=== PATIENT | female | born 1955 | race Caucasian/White ===

== ENCOUNTER → 2016-05-27 | Outpatient (CLI) | payer OTHER ==
--- NOTE | 2016-05-27 15:23 | DX ---
Bilateral Ankles, 3 views of each History: Chronic pain, history of plantar fasciitis Findings: There is subtle cystic change in both medial talar domes. There is asymmetric right ankle j oint valgus of approximately 8 degrees. The talar domes have normal articular contours. The ankle nick nts are symmetric and normal in width. There is no evidence for ankle joint effusion. Overall mineral ization is normal. There is no spurring, erosive change or sclerosis. Impression: 1. Asymmetric right ankle mild joint valgus. 2. Mild talar dome degenerative versus remote posttraumatic change.
--- NOTE | 2016-05-28 00:59 | DX ---
Bilateral Hands, Bilateral Wrists, and Bilateral Feet CLINICAL HISTORY: 60-year-old female with bilateral foot pain for three years, with tenderness over the cuboid tarsal bone, and a history of plantar fasciitis. She also has bilateral thumb pain, with i nvolvement of the left 5th digit for three years, and bilateral wrist pain for three years. 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 COMPARISON STUDY: Bilateral ankles performed today. FINDINGS BILATERAL HANDS (Three Views Each, at 11:40 a.m.): LEFT HAND: Bone mineralization is preserved. The radiocarpal and intercarpal alignments are maintai rosa. There is some mild degenerative narrowing of the thumb carpometacarpal joint, and of the thumb metacarpophalangeal and interphalangeal joints, as well as involving the index finger PIP and DIP nick nts, middle finger DIP joint, and 5th finger PIP joint where there is some soft tissue swelling and s ome osseous remodeling at the PIP joint, with slight subluxation. Has the patient had prior trauma t o the distal portion of the 5th finger proximal phalanx? RIGHT HAND: Bone mineralization is preserved. There is some mild degenerative narrowing at the xochitl cular-greater multangular articulation and at the thumb carpometacarpal joint and the metacarpophalan geal joint. There are degenerative features also at the level of the 2nd, 3rd, and 4th digit PIP and DIP joints. There is a tiny benign bone island associated with the ring finger middle phalanx. IMPRESSION: Degenerative osteoarthritic features, as-detailed. BILATERAL WRISTS (Three Views Each, at 11:36 a.m.): There is mild degenerative change associated wit h each of the thumb carpometacarpal joints where there is some slight subluxation. There is also deg enerative narrowing of the right navicular-greater multangular articulation. There is a small margin al erosion involving the peripheral medial distal portion of the left triquetrum. The radiocarpal an d intercarpal ligaments are otherwise unremarkable. There is no acute fracture, periostitis, or lyti c or blastic lesion. The pronator fat pad is not displaced on either side. There is no soft tissue calcification. IMPRESSION: Degenerative osteoarthritic features, with mild subluxation at the right and left thumb carpometacarpal joints, the right navicular-greater multangular articulation, and along the distal me dial portion of the left triquetrum. BILATERAL FEET (Three Views Each, at 11:43 a.m.): There is no juxta-articular osteopenia. There is no acute fracture or dislocation. There is no osteolytic or blastic lesion, or marginal erosion. Th e tarsometatarsal alignments are anatomic. There is a degenerative spur formation at the distal medi al portion of the right medial cuneiform. There is some mild degenerative change associated with eac h great toe metatarsophalangeal joint. There are tiny plantar calcaneal enthesophytes, left slightly greater than right. Boehler's angle is normal on each side. The subtalar joints are normal. There is no ankle joint effusion. IMPRESSION: 1. Mild degenerative change at the right great toe tarsometatarsal joint, and very mild bilateral gr eat toe MTP joint osteoarthroses. 2. Small plantar calcaneal enthesophytes, left greater than right.
== END ==
LOC: FIMAGING 11:15
PROVIDERS: ATTEND General Practice
DX: M19.041 Primary osteoarthritis, right hand (principal); M19.042 Primary osteoarthritis, left hand; M19.031 Primary osteoarthritis, right wrist; M19.032 Primary osteoarthritis, left wrist; M19.072 Primary osteoarthritis, left ankle and foot; M19.071 Primary osteoarthritis, right ankle and foot; M77.32 Calcaneal spur, left foot

== ENCOUNTER → 2017-01-06 | Outpatient (CLI) | payer OTHER | LOC: FIMAGING 12:08 | PROVIDERS: ATTEND Internal Medicine | DX: N63 Unspecified lump in breast (principal) | CPT/HCPCS: G0204 ==

== ENCOUNTER → 2017-02-17 | Outpatient (CLI) | payer OTHER | LOC: FIMAGING 13:56 | PROVIDERS: ATTEND Internal Medicine | DX: Z13.820 Encounter for screening for osteoporosis (principal); M85.832 Other specified disorders of bone density and structure, left forearm ==

== ENCOUNTER → 2017-12-27 | Outpatient (CLI) | payer OTHER | LOC: BMCIMAGING 10:09 | PROVIDERS: ATTEND Internal Medicine Rheumatology | DX: M19.041 Primary osteoarthritis, right hand (principal) ==

== ENCOUNTER → 2018-01-11 | Outpatient (CLI) | payer OTHER | LOC: FIMAGING 10:59 | PROVIDERS: ATTEND Internal Medicine Rheumatology | DX: Z13.820 Encounter for screening for osteoporosis (principal); M85.89 Other specified disorders of bone density and structure, multiple sites ==

== ENCOUNTER → 2018-02-02 | Outpatient (CLI) | payer OTHER | LOC: FIMAGING 12:06 | PROVIDERS: ATTEND Internal Medicine | DX: Z12.31 Encounter for screening mammogram for malignant neoplasm of breast (principal); Z80.3 Family history of malignant neoplasm of breast ==

== ENCOUNTER → 2018-06-01 | Outpatient (CLI) | payer OTHER | LOC: FIMAGING 14:29 | PROVIDERS: ATTEND General Practice | DX: M17.0 Bilateral primary osteoarthritis of knee (principal) ==